=== PATIENT | female | born 1970 | race African-American/Black ===

== ENCOUNTER 2018-02-27 11:03 | Emergency (ER) | payer MEDICAID ==
[~2018-02-27] VITALS: Ht 162.6 cm; Wt 55.0 kg
[~2018-02-27 11:03] MED LIST: ALPR0.5T4
[2018-02-27 12:21] LABS: BASOPHILS % 0.4 % (0.0-2.0); EOSINOPHILS % 0.5 % (0.0-5.0); HEMATOCRIT. 32.9 % (36.0-48.0); HEMOGLOBIN. 10.4 g/dL (12.0-16.0); LYMPHOCYTES % 10.7 % (20.0-50.0); MEAN CORPUSCULAR HEMOGLOBIN 23.9 pg (28.0-32.0); MEAN CORPUSCULAR VOLUME 75.3 fL (81.0-99.0); MONOCYTES % 7.3 % (2.0-8.0); NEUTROPHILS % 81.1 % (40.0-76.0); PLATELET 252 x1000/uL (130-400); RED BLOOD CELL COUNT 4.37 mill/uL (4.2-5.4); RED CELL DISTRIBUTION WIDTH 17.6 % (11.6-14.6)
[2018-02-27 12:31] LABS: INR 1.1; PROTHROMBIN TIME 10.6 sec (9.1-11.1)
[2018-02-27 12:32] LABS: CHLORIDE 103 mEq/L (98-107)
[2018-02-27 12:40] LABS: B-HCG QUANTITATIVE < 1 mIU/mL (<3)
[2018-02-27 12:53] LABS: CLARITY URINE CLOUDY (CLEAR); KETONES URINE NEGATIVE (NEGATIVE); LEUKOCYTE ESTERASE URINE 1+ (NEGATIVE); NITRITE URINE POSITIVE (NEGATIVE); OCCULT BLOOD URINE 3+ (NEGATIVE); PROTEIN URINE 2+ (NEGATIVE); SPECIFIC GRAVITY URINE 1.018 (1.005-1.030)
[2018-02-27 12:56] LABS: COLOR URINE BROWN (YELLOW)
[2018-02-27] MEDS ORDERED: SODIUM CHLORIDE 0.9% 1,000 ML IV ONE (13:05)
[2018-02-27] MEDS ORDERED: CEFTRIAXONE 1 G PREMIX 50 ML IV ONE (14:00)
[2018-02-27 15:54] VITALS: BP 128/82
== END 2018-02-27 15:55 | disposition home or self-care (01) ==
LOC: ER 11:03
DX: N93.9 Abnormal uterine and vaginal bleeding, unspecified (principal); N39.0 Urinary tract infection, site not specified; E11.9 Type 2 diabetes mellitus without complications; Z86.19 Personal history of other infectious and parasitic diseases
CPT/HCPCS: 36415; 76830; 76856; 80053; 81003; 81025; 84702; 85025; 85610; 86850; 86900; 86901; 87077; 87086; 87186; 96365; 99285; J0696; J7030; Z7610

== ENCOUNTER 2022-08-10 17:06 | Emergency (ER) | payer MEDICAID, OTHER ==
[~2022-08-10] VITALS: Ht 165.1 cm; Wt 80.0 kg
[2022-08-10 20:04] LABS: BASOPHILS % 0.6 % (0.0-2.0); HEMATOCRIT. 45.4 % (36.0-48.0); HEMOGLOBIN. 15.6 g/dL (12.0-16.0); LYMPHOCYTES % 36.4 % (20.0-50.0); MEAN CORPUSCULAR VOLUME 90.3 fL (81.0-99.0); MEAN PLATELET VOLUME 8.8 fl (7.4-10.4); MONOCYTES % 7.2 % (2.0-8.0); NEUTROPHILS % 54.8 % (40.0-76.0); PLATELET 203 x1000/uL (130-400); RED BLOOD CELL COUNT 5.03 mill/uL (4.2-5.4); RED CELL DISTRIBUTION WIDTH 13.4 % (11.6-14.6)
[2022-08-10 20:12] LABS: CHLORIDE 108 mEq/L (98-107)
[2022-08-11 05:12] VITALS: BP 180/95
== END 2022-08-11 05:10 | disposition home or self-care (01) ==
LOC: ER 17:06
DX: R42 Dizziness and giddiness (principal)
CPT/HCPCS: 36415; 80053; 85025; 93005; 99284

== ENCOUNTER 2022-09-06 22:16 | Emergency (ER) | payer OTHER ==
[~2022-09-06] VITALS: Ht 162.6 cm; Wt 68.0 kg
[2022-09-06] MEDS ORDERED: CLONIDINE 0.1MG TABLET PO NR (23:30)
[2022-09-07 01:30] VITALS: BP 152/85
== END 2022-09-07 01:30 | disposition home or self-care (01) ==
LOC: ER 22:16
DX: I10 Essential (primary) hypertension (principal)
CPT/HCPCS: 99283